=== PATIENT | male | born 1990 | race Two or more races ===

== ENCOUNTER 2018-03-28 01:01 | Emergency (ER) | payer SELFPAY ==
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
== END 2018-03-28 01:35 | disposition home or self-care (01) ==
LOC: MW.ED 01:01
DX: Z02.89 Encounter for other administrative examinations (principal)
CPT/HCPCS: 99282; 99284

== ENCOUNTER 2020-02-12 21:39 | Emergency (ER) | payer BC ==
[2020-02-13] MEDS ORDERED: traMADol 50 MG Tab PO ONE (00:02)
[2020-02-13] MEDS ORDERED: Cephalexin 500 MG Cap PO ONE (00:02)
[2020-02-13] MEDS ORDERED: Ibuprofen 600 MG Tab PO ONE (00:02)
--- NOTE | 2020-02-13 00:13 | EDM.PDOC ---
ED HPI GENERAL MEDICAL PROBLEM - General Chief Complaint: ENT Problem Stated Complaint: BACK TEETH PAIN Time Seen by Provider: 02/12/20 23:45 - History of Present Illness INITIAL COMMENTS - FREE TEXT/NARRATIVE: HISTORY AND PHYSICAL: History of present illness: 29-year-old gentleman who presents ER today complaining of pain to his left upper tooth. Patient denies any other symptomatology. Patient has any recent fevers, shakes, chills, nausea, vomiting, diarrhea, dysuria, frequency, urgency. Patient has any history of hypertension, diabetes, liver, lung, kidney problems. Patient has no known drug allergies. Patient reports he has not seen a dentist. Patient wrist pain has been there for approximately 2 to 3 days. Patient denies any difficulty opening his mouth. Review of systems: As per history of present illness and below otherwise all systems reviewed and negative. Past medical history: As per history of present illness and as reviewed below otherwise noncontributory. Surgical history: As per history of present illness and as reviewed below otherwise noncontributory. Social history: No reported history of drug or alcohol abuse. Family history: As per history of present illness and as reviewed below otherwise noncontributory. Physical exam: Constitutional: Patient is oriented to person, place, and time. Appears well- developed and well-nourished. No distress. HEENT: Moist mucous membranes Head: Normocephalic and atraumatic Eyes: Right eye exhibits no discharge. Left eye exhibits no discharge. No scleral icterus Neck: Normal range of motion. No tracheal deviation present. Cardiovascular: Normal rate and regular rhythm. Pulmonary: Effort normal, no respiratory distress. Abdominal: No distention Musculoskeletal: Normal range of motion Neurologic: Alert and oriented to person, place and time. Skin: [place], warm and dry. Psychiatric: Normal mood and affect. Behavior is normal. Judgment and thought content normal. Nursing note and vital signs have been reviewed __ This patient was seen and evaluated during the 2019 SARS-CoV-2 novel coronavirus pandemic period. Community viral transmission is ongoing at time of this encounter and the emergency department is operating under pandemic response procedures. Patient's ER physical exam is significant for tenderness palpation to the left upper molars. Assessment and plan. 29-year-old gentleman who presents ER today secondary to dental pain. Patient is not been able to see a dentist as of yet. Patient be started on Keflex here in the ED and given a prescription for ibuprofen and Keflex. Patient be given a dose of Ultram and ibuprofen and Keflex here. Reassessment at the time of disposition demonstrates that the patient is in no acute distress. The patient has remained stable throughout the entire ED visit and is without objective evidence for acute process requiring urgent intervention or hospitalization. The patient is stable for discharge, counseling is provided as documented above, discussed symptomatic treatment and specific conditions for return. I have spoken with the patient/caregiver and discussed todays findings, in addition to providing specific details for the plan of care. Questions are answered and there is agreement with the plan. Definitive disposition and diagnosis as appropriate pending reevaluation and review of above. Tooth/Teeth Pain Score (Numeric/FACES): 10 - Related Data Allergies Allergy/AdvReac Type Severity Reaction Status Date / Time No Known Allergies Allergy Verified 02/13/20 00:34 Home Meds: Home Meds Ibuprofen 600 mg PO Q6HR PRN #30 tablet 02/13/20 [Rx] cephALEXin [Keflex] 500 mg PO TID #30 capsule 02/13/20 [Rx] Past Medical History HEENT History: Reports: None Cardiovascular History: Reports: None Respiratory History: Reports: None Gastrointestinal History: Reports: None Genitourinary History: Reports: None Musculoskeletal History: Reports: None Neurological History: Reports: None Psychiatric History: Reports: None Endocrine/Metabolic History: Reports: None Hematologic History: Reports: None Immunologic History: Reports: None Oncologic (Cancer) History: Reports: None Dermatologic History: Reports: None - Infectious Disease History Infectious Disease History: Reports: Chicken Pox - Past Surgical History Head Surgeries/Procedures: Reports: None Social & Family History - Family History Family Medical History: No Pertinent Family History - Caffeine Use Caffeine Use: Reports: Coffee ED ROS GENERAL - Review of Systems Review Of Systems: See Below ED EXAM, GENERAL - Physical Exam Exam: See Below Course - Vital Signs Last Recorded V/S: Last Vital Signs Temp 97.4 F 02/12/20 23:40 Pulse 66 02/13/20 00:23 Resp 16 02/13/20 00:23 BP 131/91 H 02/13/20 00:23 Pulse Ox 99 02/13/20 00:23 - Orders/Labs/Meds Meds: Medications Discontinued Medications Generic Name Dose Route Start Last Admin Trade Name Freq PRN Reason Stop Dose Admin Cephalexin 500 mg 02/13/20 00:02 02/13/20 00:22 Keflex PO 02/13/20 00:03 500 mg ONETIME ONE Administration Ibuprofen 600 mg 02/13/20 00:02 02/13/20 00:22 Motrin PO 02/13/20 00:03 600 mg ONETIME ONE Administration Tramadol HCl 50 mg 02/13/20 00:02 02/13/20 00:22 Ultram PO 02/13/20 00:03 50 mg ONETIME ONE Administration Departure - Departure Time of Disposition: 00:13 Disposition: Home, Self-Care 01 Condition: Good Clinical Impression: Dental caries extending into dentin, Dental abscess - Discharge Information Prescriptions: Ibuprofen 600 mg PO Q6HR PRN #30 tablet PRN Reason: Pain cephALEXin [Keflex] 500 mg PO TID #30 capsule Instructions: Dental Abscess, [id number] Referrals: PCP,None [Primary Care Provider] - Forms: ED Department Discharge Additional Instructions: Your seen and evaluated in the ER today secondary to a toothache. You will be started on Keflex and ibuprofen to assist you with the pain infection. Please make an appoint to see a dentist as soon as you can. The following information is given to patients seen in the emergency department who are being discharged to home. This information is to outline your options for follow-up care. We provide all patients seen in our emergency department with a follow-up referral. The need for follow-up, as well as the timing and circumstances, are variable depending upon the specifics of your emergency department visit. If you don't have a primary care physician on staff, we will provide you with a referral. We always advise you to contact your personal physician following an emergency department visit to inform them of the circumstance of the visit and for follow-up with them and/or the need for any referrals to a consulting specialist. The emergency department will also refer you to a specialist when appropriate. This referral assures that you have the opportunity for follow-up care with a specialist. All of these measure are taken in an effort to provide you with optimal care, which includes your follow-up. Under all circumstances we always encourage you to contact your private physician who remains a resource for coordinating your care. When calling for follow-up care, please make the office aware that this follow-up is from your recent emergency room visit. If for any reason you are refused follow-up, please contact the [facility] Emergency Department at and asked to speak to the emergency department charge nurse. [facility] [address] [place] [id number] [address] Sepsis Event Note (ED) - Evaluation Sepsis Screening Result: No Definite Risk
== END 2020-02-13 00:25 | disposition home or self-care (01) ==
LOC: MW.ED 21:39
DX: K04.7 Periapical abscess without sinus (principal); K02.9 Dental caries, unspecified
CPT/HCPCS: 99282; A9270

== ENCOUNTER 2023-03-16 16:26 | Emergency (ER) | payer SELFPAY ==
[2023-03-16] MEDS: Lidocaine 1% 5 ML VIAL INJECT STA (18:32)
[2023-03-16] MEDS: Diphtheria,Pertussis(Acell),Tetanus Vaccine 0.5 ML Syringe IM ONE (18:32)
[2023-03-16] MEDS: Cephalexin 500 MG Cap PO STA (20:26)
== END 2023-03-16 20:32 | disposition home or self-care (01) ==
LOC: MW.ED 16:26
DX: S91.202A Unspecified open wound of left great toe with damage to nail, initial encounter (principal); F17.210 Nicotine dependence, cigarettes, uncomplicated; Z79.899 Other long term (current) drug therapy; Z23 Encounter for immunization; W20.8XXA Other cause of strike by thrown, projected or falling object, initial encounter
CPT/HCPCS: 11730; 73630; 90471; 90715; 99283; A9270; J3490